=== PATIENT | female | born 1985 | race Caucasian/White ===

== ENCOUNTER 2019-04-11 18:05 | Emergency (ER) | payer SELFPAY | END 2019-04-11 20:49 | disposition home or self-care (01) | LOC: ERS 18:05 | DX: R59.0 Localized enlarged lymph nodes (principal); F31.9 Bipolar disorder, unspecified; F17.210 Nicotine dependence, cigarettes, uncomplicated; Z71.6 Tobacco abuse counseling | CPT/HCPCS: 99406 ==

== ENCOUNTER → 2019-04-16 | Day surgery (SDC) | payer OTHER ==
[2019-04-15 09:13] VITALS: BMI 21.0
[~2019-04-16] MED LIST: Bupivacaine PF 0.5% 30 ML VIAL ONE; Dexamethasone 20 MG/5 ML VIAL ONE; Fentanyl 100 MCG/2 ML VIAL ONE; Glycopyrrolate 0.2 MG/ML 5 ML SYRINGE ONE; Ketorolac Tromethamine 30 MG/ML VIAL ONE; Levofloxacin 500 mg/D5W 100 ml Premix Bag ONE; Lidocaine 1% PF 5 ML VIAL ONE; Lidocaine 1% w/Epinephrine 1:100K 20 ML VIAL ONE; Ondansetron PF 4 MG/2 ML Vial ONE; PROPOFOL 200 MG/20 ML VIAL ONE; Rocuronium Bromide 10 MG/ML (10ML VIAL) ONE; SUGAMMADEX SODIUM 200 MG/2 ML VIAL ONE; traMADol HCl 50 MG TAB ONE
--- NOTE | 2019-04-16 09:24 | HP ---
HISTORY OF PRESENT ILLNESS: The patient is a 33-year-old female, seen in the emergency room on 12/30/2018 for right upper quadrant pain. Ultrasound revealed an enlarged gallstone and normal bile duct caliber with liver function tests and CBCs at that time normal. The patient is working. She is trying to not miss work, but has been having for the past year, intermittent right upper quadrant pain with right flank radiation and postprandial nausea and vomiting. She was to be seen in my office in 48 hours, but we saw her sooner because of her worsening pain. She reports to my office and is in obvious discomfort of right upper quadrant. ALLERGIES: NONE. SOCIAL HISTORY: Tobacco, 1 pack per day. Alcohol, rarely socially. She lives alone. 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 MEDICATIONS: None routinely. PAST SURGICAL HISTORY: Tubal ligation, 3 C-sections, and arthroscopic knee surgery. PHYSICAL EXAMINATION: VITAL SIGNS: 115 pounds, 110/52, 95, and 97.7 degrees. HEAD, EARS, EYES, NOSE, AND THROAT: Unremarkable. LUNGS: Clear to auscultation. CARDIAC: Regular rate and rhythm without murmur or gallop. ABDOMEN: Soft. Tenderness in right upper quadrant. No guarding or rebound. Positive Mejia's sign. EXTREMITIES: Unremarkable. ASSESSMENT: Acute cholecystitis, cholelithiasis, obstructing gallbladder outlet. We would recommend laparoscopic video cholecystectomy. Risks of infection, bleeding, visceral, and biliary injury discussed. Questions answered. PLAN: Laparoscopic cholecystectomy as soon as possible tomorrow. Job ID: [id number]
[2019-04-16 09:44] LABS: #Eosinphils 0.1 thou/uL (0.0-0.7); #Monocytes 0.6 thou/uL (0.11-0.59); %Basophils 0.3 % (0.0-1.0); %Lymphocytes 23.3 % (21.0-51.0); %Monocytes 4.8 % (0.0-10.0); %Neutrophils 70.7 % (42.0-75.0); Mean Corpuscular HGB CONC 33.8 g/dL (32.0-36.0); Mean Corpuscular Volume 88.8 fL (78.0-98.0); Mean Platelet Volume 6.8 fL (7.4-10.4); Platelet Count 356 thou/uL (130-400); RBC Distribution Width 11.9 % (11.5-14.5); Red Blood Cell (RBC) Count 4.66 mill/uL (4.20-5.40); White Blood Cell (WBC) Count 12.8 thou/uL (4.8-10.8)
[2019-04-16 09:59] LABS: ALT (SGPT) 9 U/L (8-55); AST (SGOT) 13 U/L (5-34); Albumin 4.1 g/dL (3.5-5.0); Alkaline Phosphatase 63 U/L (40-110); Anion Gap 12 mmol/L (10-20); BUN (Urea Nitrogen) 11 mg/dL (7.0-18.7); Bilirubin, Total 0.3 mg/dL (0.2-1.2); Calc. Creatinine Clearance 84 mL/min (70-130); Calcium 9.3 mg/dL (7.8-10.44); Carbon Dioxide 25 mmol/L (22-29); Chloride 105 mmol/L (98-107); Estimated GFR-MDRD 85; Globulin 2.8 g/dL (2.4-3.5); Glucose 81 mg/dL (70-105); Potassium 4.1 mmol/L (3.5-5.1); Protein, Total 6.9 g/dL (6.0-8.3); Sodium 138 mmol/L (136-145)
--- NOTE | 2019-04-16 11:20 | OP ---
DATE OF PROCEDURE: 04/16/2019 PREOPERATIVE DIAGNOSES: 1. Chronic cholecystitis. 2. Cholelithiasis. POSTOPERATIVE DIAGNOSES: 1. Chronic cholecystitis. 2. Cholelithiasis. PROCEDURE PERFORMED: Laparoscopic video cholecystectomy. ANESTHESIA: General, local with 0.5% Marcaine 30 mL mixed with 1% Xylocaine with epinephrine, 40 mL mixture used. DESCRIPTION OF PROCEDURE: The patient was taken to the operating room, where under general anesthesia, abdomen was prepared with ChloraPrep and draped in routine fashion. Local anesthetic mixture was infiltrated into the skin and subcutaneous tissue about each port site. Infraumbilical incision made. Pneumoperitoneum to 15 mmHg was obtained with a Veress needle, replaced with a 5 port. Laparoscope inserted. Right subxiphoid incision was made and 11 port placed. Right subcostal incision was made at midclavicular entrance line and the 5 port was placed. Liver appeared to be normal. Fundus of the gallbladder was grasped at the cephalad. Omental adhesions taken down, identifying the infundibulum, grasped and reflected laterally. Cystic artery and duct dissected free. Critical view obtained. Cystic artery and duct doubly clipped proximally and divided. Gallbladder dissected free from liver bed, obtaining good hemostasis prior to division of final peritoneal attachments. Gallbladder and contents and large stone removed, submitted to Pathology. Good hemostasis was assured with cautery. Irrigant and pneumoperitoneum were evacuated. All instruments were removed. All skin incisions were approximated with interrupted subdermal 4-0 Monocryl and Vivian glue applied. Job ID: [id number]
== END ==
LOC: SDC 08:56
PROVIDERS: ATTEND Specialist
PROC: 0FT44ZZ Resection of Gallbladder, Percutaneous Endoscopic Approach (ICD-10-PCS; principal; 2019-04-16)
DX: K80.10 Calculus of gallbladder with chronic cholecystitis without obstruction (principal); F17.210 Nicotine dependence, cigarettes, uncomplicated
CPT/HCPCS: 36415; 80053; 85025; 88304; J0131; J1100; J1885; J1956; J2001; J2405; J2704; J3010; S0020